=== PATIENT | male | born 1955 | race Caucasian/White ===

== ENCOUNTER → 2020-05-04 08:59 | Outpatient (BNVA) | payer OTHER, SELFPAY | PROVIDERS: Visit Provider Internal Medicine | DX: Z11.59 Encounter for screening for other viral diseases (principal) | CPT/HCPCS: 87635 ==

== ENCOUNTER 2020-05-09 07:02 | Day surgery (SDC) | payer OTHER, SELFPAY ==
[2020-05-04 10:00] VITALS: BMI 24.9
--- NOTE | 2020-05-04 10:18 | ANES.PREANE2 ---
Pre-Anesthetic Assessment Pre-Anesthetic Assessment: Height/Weight: Height 1.89 m Weight 89.358 kg Preop Diagnosis: Bleeding Proposed Procedure: Operation Date: 05/09/20 11:30 Proposed Procedures p Colonoscopy(Not Applicable) - Erik Landrum MD Familial anesthetic complications: None Was Beta Tony taken within 24 hours: N/A Social: Social History: Tobacco and No alcohol Comment: former smoker Exam: Pre-Anes Outpt Exam: alert, oriented x 3, clear to auscultation bilaterally and regular rate & rhythm Airway: Cervical ROM: WNL MP: 1 Dentition: Other (edentulous) Pulmonary: Pulmonary: COPD Anesthetic Plan: ASA status: 2 Anesthesia: MAC Risk of > 500 ml blood loss (7ml/kg in children): No PFSH Anesthesia PFSH: Family History Other CAD (coronary artery disease) Diabetes Stroke Denies family history of Anesthesia complication Bleeding disorder Cancer Social History Smoking and tobacco status: current every day smoker Alcohol intake: current Alcohol intake frequency: holidays/special occasions only Lives independently: Yes Marital status: Single Current occupational status: retired History of recent travel: No Data Anesthesia Cardiac Studies: No Data to Display
[2020-05-09 07:17] VITALS: BP 133/79; PULSE 57; RESP 18; TEMP 36.6; O2SAT 99
--- NOTE | 2020-05-09 07:33 | P.ANESUD_ITS ---
Pre-Anesthetic Update Pre-Anesthetic Assessment: Date of Surgery/Procedure: 05/09/20 Preop Dionne gnosis: Bleeding per rectum Proposed Procedure: Operation Date: 05/09/20 08:45 Proposed Procedures p Colonoscopy(Not Applicable) - Erik Landrum MD Any changes to Pre-Anesthetic Assessment?: No Last Intake: Intake Last Liquid Date 05/08/20 Last Liquid Time 21:00 Last Solid Date 05/07/20 Vitals: Temperature 97.8 F 05/09/20 07:17 Temperature Source Tympanic 05/09/20 07:17 Pulse Rate 57 L 05/09/20 07:17 Respiratory Rate 18 05/09/20 07:17 Blood Pressure 133/79 05/09/20 07:17 Blood Pressure Zuri n 97 05/09/20 07:17 Pulse Oximetry 99 05/09/20 07:17 Oxygen Delivery Me thod 05/09/20 07:17 Exam: Pre-Anes Outpt Exam: alert, oriented x 3, clear to auscultation bilaterally and regular rate & rhythm Cardiac Studies: No Data to Display
[2020-05-09] MEDS: sodium chloride 0.9% 1,000 ML 30 ML IV (07:36)
--- NOTE | 2020-05-09 08:36 | W.PM.OPSUD ---
Surgery/Procedure H&P Update DATE OF PROCEDURE: May 09, 2020 DATE H&P PERFORMED: 04/25/20 H&P UPDATE INFORMATION: I have reviewed H&P completed within last 30 days, I have examined patient prior to procedure and No changes to prior documentation PREOP DIAGNOSIS: Bleeding per rectum PRIMARY INDICATION FOR PROCEDURE: The same PLANNED PROCEDURE: Operation Date: 05/09/20 08:45 Proposed Procedures p Colonoscopy(Not Applicable) - Erik Landrum MD
[2020-05-09 09:25] VITALS: BP 121/78; PULSE 53; RESP 16; TEMP 36.1; O2SAT 100
--- NOTE | 2020-05-09 09:31 | ANE.PACU2 ---
Inpatient post-anesthesia follow up: Airway intact: Yes Vital signs: Temperature 97.0 F Pulse Rate 53 Respiratory Rate 16 Blood Pressure 121/78 Pulse Oximetry 100 Oxygen Delivery Me thod Nasal Cannula Oxygen Flow Rate 3.0 Fraction of Inspir ed Oxygen Hydration adequate: Yes Nausea and vomiting: Yes Mental status: Baseline
[2020-05-09 09:38] VITALS: BP 143/79; PULSE 57; RESP 18; O2SAT 100
== END 2020-05-09 09:50 | disposition home or self-care (01) ==
PROVIDERS: Visit Provider Surgery
PROC: 0DJD8ZZ Inspection of Lower Intestinal Tract, Via Natural or Artificial Opening Endoscopic (ICD-10-PCS; CPT 45378; principal; 2020-05-09 08:45)
DX: D12.5 Benign neoplasm of sigmoid colon (principal); D12.2 Benign neoplasm of ascending colon; K62.0 Anal polyp; D12.4 Benign neoplasm of descending colon; J44.9 Chronic obstructive pulmonary disease, unspecified; F17.210 Nicotine dependence, cigarettes, uncomplicated
CPT/HCPCS: 12345; 45385; 88305; J2704; J3490; J7030

== ENCOUNTER → 2020-05-17 10:05 | Outpatient (BNVA) | payer OTHER, SELFPAY | PROVIDERS: Visit Provider Surgery | DX: Z11.59 Encounter for screening for other viral diseases (principal) | CPT/HCPCS: 87635 ==

== ENCOUNTER 2020-05-21 08:45 | Day surgery (SDC) | payer OTHER, SELFPAY ==
[2020-05-18 09:43] VITALS: BMI 24.9
[2020-05-21] VITALS (7 sets, daily range): BP systolic 122–177; BP diastolic 77–99; PULSE 50–69; RESP 14–18; TEMP 36.1–36.7; O2SAT 90–100
--- NOTE | 2020-05-21 08:54 | ANES.PREANE2 ---
Pre-Anesthetic Assessment Pre-Anesthetic Assessment: Height/Weight: Height 1.89 m Weight 89.358 kg Temp Pulse Resp BP Pulse Ox 98.0 F 61 18 143/77 98 05/21/20 08:52 05/21/20 08:52 05/21/20 08:52 05/21/20 08:52 05/21/20 08:52 Preop Diagnosis: Right inguinal hernia Proposed Procedure: Operation Date: 05/21/20 10:20 Proposed Procedures p Laparoscopic Inguinal Hernia Repair w/Mesh 45809 K40.90(Right) - Erik Landrum MD Familial anesthetic complications: None Was Beta Tony taken within 24 hours: N/A Last intake: Intake Last Liquid Date 05/20/20 Last Liquid Time 20:00 Last Solid Date 05/20/20 Last Solid Time 20:00 Social: Social History: Tobacco and No alcohol Exam: Pre-Anes Outpt Exam: alert, oriented x 3, clear to auscultation bilaterally and regular rate & rhythm Airway: Cervical ROM: WNL MP: 1 Dentition: Other (no teeth) Pulmonary: Pulmonary: COPD Anesthetic Plan: ASA status: 2 Risk of > 500 ml blood loss (7ml/kg in children): No PFSH Anesthesia PFSH: Family History Other CAD (coronary artery disease) Diabetes Stroke Denies family history of Anesthesia complication Bleeding disorder Cancer Social History Smoking and tobacco status: current every day smoker Alcohol intake: current Alcohol intake frequency: holidays/special occasions only Lives independently: Yes Marital status: Single Current occupational status: retired History of recent travel: No Data Anesthesia Cardiac Studies: No Data to Display
[2020-05-21] MEDS: sodium chloride 0.9% 1,000 ML 30 ML IV (09:01)
[2020-05-21 09:11] LABS: Basophils % 0.5 %; Eosinophils # 0.2 10^3/uL (0.0-0.8); Eosinophils % 2.3 %; Hematocrit 44.1 % (42.0-52.0); Lymphocytes # 2.9 10^3/uL (0.8-4.8); Lymphocytes % 33.6 %; Mean Corpuscular HGB Conc 31.7 g/dL (30.0-36.0); Mean Corpuscular Hemoglobin 28.9 pg (28.0-34.0); Mean Corpuscular Volume 91.1 fL (80-94); Mean Platelet Volume 11.7 fL (7.4-10.4); Monocytes # 0.6 10^3/uL (0.2-0.9); Monocytes % 6.5 %; Neutrophils % 56.9 %; Nucleated Red Blood Cells % 0 %; Platelet Count 171 10^3/cmm (130-400); Red Blood Count 4.84 10^6/uL (4.1-5.3); Red Cell Distribution Width 12.8 % (12.1-15.1); White Blood Count 8.6 10^3/uL (4.0-10.0)
[2020-05-21 09:36] LABS: Anion Gap 13.3 (5-19); Blood Urea Nitrogen 17 mg/dL (8-23); Calcium 9.2 mg/dL (8.5-10.5); Carbon Dioxide 25 mmol/L (22-29); Chloride 105 mmol/L (98-107); Glomerular Filtration Rate 97.3 mL/min (90-130); Glucose 97 mg/dL (65-115); Osmolality Calculated 289 mOsm/kg (285-295); Potassium 4.3 mmol/L (3.5-5.1); Sodium 139 mmol/L (136-145)
--- NOTE | 2020-05-21 11:09 | W.PM.OPSUD ---
Surgery/Procedure H&P Update DATE OF PROCEDURE: May 21, 2020 DATE H&P PERFORMED: 05/16/20 H&P UPDATE INFORMATION: I have reviewed H&P completed within last 30 days, I have examined patient prior to procedure and No changes to prior documentation PREOP DIAGNOSIS: Right inguinal hernia PRIMARY INDICATION FOR PROCEDURE: The same PLANNED PROCEDURE: Operation Date: 05/21/20 10:20 Proposed Procedures p Laparoscopic Inguinal Hernia Repair w/Mesh 36398 K40.90(Right) - Erik Landrum MD
--- NOTE | 2020-05-21 13:32 | P.OP_ITS ---
Operative Report Date of procedure: May 21, 2020 Pre-op Diagnosis: Right inguinal hernia Post-op diagnosis: same Post-op Findings: Right indirect inguinal hernia Procedure Done: Laparoscopic right inguinal hernia repair with mesh placement 3D large size Implants: 3D large mesh Specimens removed/disposition: Hernial sac Surgeon: Erik Landrum Powder Guard: Surgical techbatsheva Zamora and Ben Circulating nurses Lenore and Angeline Anesthesia: General (skilled trades teacher Mark) Estimated blood loss (mL): 10 Condition: stable Disposition: same day Brief History: This is a pleasant 64 years old gentleman referred to my practice with symptomatic right inguinal hernia. After thorough history physical examination and reviewing the chart I did prevocational/rehabilitation counselor the patient for laparoscopic right inguinal hernia repair with mesh placement possible open. And agreed to proceed. Informed consent per chart Procedure: Procedure: Transabdominal preperitoneal (DOUGLAS) approach. Patient was identified in the holding area ,patient was transferred to the operating room where he was placed in supine position, with both arms were tucked, antibiotic was given with induction, endotracheal tube was placed per anesthesia, Carmichael catheter was inserted by the circulating nurse and revealed clear urine, prep and drape of the abdomen was done under the usual sterile technique as well as the scrotal area. Time-out was done verifying the patient's name/date of /planned procedure destination after the procedure, all were in agreement. SCDs confirmed to be functioning, preoperative antibiotics administered per protocol, and beta kana protocol was confirmed. A vertical skin incision of 1.2 cm was made with 11 blade knife through the supra umbilicus , incision was carried down to the subcutaneous tissue and deepened to identify the anterior fascia, two stay sutures were applied to the fascia, and safe entrance to the abdominal cavity was achieved, a Campa trocar technique safe entry to the abdominal cavity was achieved verified by using 10 mm zero degree laparoscopy, switched to a 30 degrees scope,low flow followed by a higher flow of CO2 gas up to 15 mmHg. There was no evidence of injury to intra-abdominal structures from the port entry, attention was deviated to both groins, there was a large indirect hernia defect with herniation of peritoneum and preperitoneal fat was noted on the right side, two 5 mm ports were placed on the right and left lateral aspect of the abdomen slightly above the level of the umbilicus, under direct visualization, anesthesia 2% lidocaine local was injected at all trocar sites prior to incisions. The peritoneum above the level of the iliopubic tract was incised to the right of the midline and dissection was performed to create a preperitoneal space medial to lateral aspect up to anterior superior iliac spine on the right side using harmonic scalpel. Dissection was continued onto the medial aspect and the right spermatic was identified, there was evidence of small direct inguinal hernia and a large indirect inguinal hernia.the sac was dissected. As it applied medial to the right inferior epigastric vessels/ dissection was performed to clear the space lateral to the spermatic cord and dorsomedial to it, the hernia sac was reduced and retracted far back, part of the hernial sac was removed and sent for permanent pathology. Suction irrigation was used. Hemostasis was secured as the hernial sac was tethered and developed adhesions that caused some oozing. Then a large right 3-D mesh was rolled and placed into the abdominal cavity through the Campa port, after the mesh was introduced it was positioned to lie in the myopectineal orifice and the mesh was unrolled and this covered the entire my myope pectineal orifice. Intra-abdominal pressure was dropped to 12 mmHg to help placement of the mesh good position. On the lateral aspect of the mesh extended up to the anterior superior iliac spine on the medial aspect the mesh crossed the midline onto the left side, then using absorbable tacks, placed above the iliopubic tract onto the rectus abdominis muscle on the medial aspect and also to the lateral abdominal wall superomedial to the sacroiliac spine, then the mesh was also anchored to the pubis and the Cyrus's ligament inferiorly.The peritoneal leaflets were then brought together to cover the mesh and isolated from the other viscera, extra tacks were used to secure the peritoneum in good position. There was no evidence of inguinal hernia on the left side.Final look demonstrated good hemostasis and the mesh in good position A total of 20 mL Exparel 40 ml Normal saline 20 ml bupivacaine 0.25% were injected at the remaining of the tacks site and trocar sites as well Final look demonstrated good hemostasis there were no injuries,Then the fascia on the supra umbilical fascial defect was closed using #1 PDS under direct visualization using fascial closure device Alfred Najera. then the abdomen was desufflated while holding the peritoneum to make sure there is no herniation blue the mesh. All ports were removed. All skin incisions were closed with 4-0 Monocryl subcuticular suture and surgical glue was applied. The patient tolerated the procedure well, Carmichael catheter was taken out ,got extubated and was transferred to the recovery area in stable condition All counts of instruments, needles and sponges were completed I was present for the whole entire procedure
[2020-05-21] MEDS: HYDROcodone-acetaminophen 5-325 mg Tablet 1 TAB PO (14:15)
--- NOTE | 2020-05-21 15:10 | ANE.PACU2 ---
Inpatient post-anesthesia follow up: Airway intact: Yes Vital signs: Temperature 97.0 F Pulse Rate 50 Respiratory Rate 18 Blood Pressure 122/82 Pulse Oximetry 99 Oxygen Delivery Me thod Room Air Oxygen Flow Rate 10 Fraction of Inspir ed Oxygen Hydration adequate: Yes Nausea and vomiting: No Pain level: 2 Mental status: Baseline
== END 2020-05-21 15:15 | disposition home or self-care (01) ==
LOC: OR 14:57
PROVIDERS: Visit Provider Surgery
PROC: (CPT 49650; principal; 2020-05-21 10:20)
DX: K40.90 Unilateral inguinal hernia, without obstruction or gangrene, not specified as recurrent (principal); J44.9 Chronic obstructive pulmonary disease, unspecified; F17.200 Nicotine dependence, unspecified, uncomplicated
CPT/HCPCS: 49650; 12345; 36415; 51702; 80048; 85025; 88302; 96365; C1781; C9290; J0131; J0690; J1100; J2405; J2710; J3010; J3490; J7030

== ENCOUNTER 2020-07-11 12:52 | Outpatient (CLI) | payer OTHER, SELFPAY ==
--- NOTE | 2020-07-11 13:10 | CT_ITS ---
WS: [id number] CT scan of the chest With IV contrast, CT scan of the abdomen and pelvis with IV contrast and oral contrast. Additional two-dimensional coronal and sagittal reconstruction was performed. 07/11/2020 Clinical Data: RIGHT INGUINAL Hernia, pulmonary NODULES Comparison: None. DLP: 2362.[address] scans at [facility] use at least one of these dose optimization techniques: automat ed exposure control; mA and/or kV adjustment per patient size (includes targeted exams where dose is matched to clinical indication); or iterative reconstruction. Findings: Chest: No nodules, masses or effusions are seen. Bilateral upper lobe emphysema is present. The heart size is normal with no pericardial effusion. There is coronary artery calcification. No pne umonia or pneumothorax is seen. The pulmonary vascularity is normal. The trachea bifurcates normally into the bronchi. The pulmonary arterial system and thoracic aorta demonstrate no abnormalities or di latations. There is no axillary or significant mediastinal adenopathy. There is a small hiatal hernia. The bony thorax shows only minimal osteoarthritis of the thoracic vertebral bodies. Abdomen/pelvis: The liver, gallbladder, spleen, adrenal glands and pancreas are normal. The kidneys show equal bilateral contrast excretion with no cyst or masses. No hydronephrosis or roland l calculi are noted. The abdominal aorta is normal in size with minimal calcification in the wall.. No appendicitis or diverticulitis is seen. Oral contrast is in the stomach and small bowel and there is no bowel dilatation. No abscess, adenopathy, ascites, mass, obstruction or free air is seen. The bladder is unremarkable. The prostate is enlarged with calcification within. There is a right ing uinal hernia.. 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 CT/CT chest abd pel w con* Impression: 1. Negative for acute cardiopulmonary disease. 2. Negative for acute intra-abdominal abnormalities. 3. Small right inguinal hernia.
[2020-07-11] MEDS: iohexol 300 mg/mL 50 mL Btl PO (13:20)
[2020-07-11] MEDS: iohexol 300 mg/mL 100 mL Btl IV (15:08)
[2020-07-11 15:10] LABS: Blood Urea Nitrogen 12 mg/dL (8-23); Glomerular Filtration Rate 113.5 mL/min (90-130)
== END 2020-07-11 12:53 | disposition home or self-care (01) ==
LOC: RADWPI 12:56
PROVIDERS: Visit Provider Emergency Medicine Emergency Medical Services
DX: K40.90 Unilateral inguinal hernia, without obstruction or gangrene, not specified as recurrent (principal)
CPT/HCPCS: 71260; 74177; 82565; 84520; Q9967

== ENCOUNTER 2020-08-03 12:11 | Outpatient (CLI) | payer OTHER, SELFPAY ==
--- NOTE | 2020-08-03 12:17 | USCV_ITS ---
Jayme De Jesus Age: 64 Gender: M : 1955 Exam Date: 08/03/2020 12:23 Ordering Phys: Mikhail Pinto DO Technologist: Jossy Alcocer Exam Location: [facility] – [place] Indication: BRUIT LT SIDE Risk Factors: Unknown Previous Vascular Surgery: None Right Brachial BP: / Left Brachial BP: / Right Left Velocity (cm/s) Spectral Plaque Velocity (cm/s) Spectral Plaque Syst/Diast Broadening Syst/Diast Broadening 89.30/ 25.40 Prox CCA 102.50/ 26.40 79.40/ 25.40 Mid CCA 73.00 / 15.50 75.00/ 25.40 Distal CCA 121.20/ 26.40 56.70/ 22.50 Prox ICA 73.50 / 23.10 59.00/ 25.60 Mid ICA 68.40 / 29.90 62.90/ 28.70 Distal ICA 72.60 / 34.20 66.80 ECA 62.40 0.79 ICA/CCA 1.01 Antegrade Vertebral Antegrade 45.80/ 14.80 cm/s 57.30/ 22.20 cm/s Tri Subclavian Tri 149.1 139.8 0 0 CONCLUSIONS Right ICA stenosis <50%. Mild atheromatous plaque right carotid bulb/ICA. Left ICA stenosis <50%. Mild atheromatous plaque left carotid bulb/ICA. Normal antegrade Doppler flow noted in the right vertebral artery. Normal antegrade Doppler flow noted in the left vertebral artery. Nura Brock MD (Electronically Signed) Final Date: 03 August 2020 17:43 S
== END 2020-08-03 12:12 | disposition home or self-care (01) ==
LOC: US 12:14
PROVIDERS: Visit Provider Emergency Medicine Emergency Medical Services
DX: R09.89 Other specified symptoms and signs involving the circulatory and respiratory systems (principal); I65.23 Occlusion and stenosis of bilateral carotid arteries
CPT/HCPCS: 93880

== ENCOUNTER → 2022-04-23 08:33 | Outpatient (BNVA) | payer OTHER, SELFPAY | PROVIDERS: Visit Provider Surgery | DX: Z86.010 Personal history of colon polyps (principal) | CPT/HCPCS: 99213 ==

== ENCOUNTER 2022-06-13 09:22 | Day surgery (SDC) | payer OTHER, SELFPAY ==
[2022-04-24 14:32] VITALS: BMI 26.6
[2022-06-12 11:53] VITALS: BMI 26.6
--- NOTE | 2022-06-12 15:29 | ANE.PACU2 ---
Inpatient post-anesthesia follow up: Airway intact: Yes Vital signs: Temperature Pulse Rate Respiratory Rate Blood Pressure Pulse Oximetry Oxygen Delivery Me thod Oxygen Flow Rate Fraction of Inspir ed Oxygen Hydration adequate: Yes Nausea and vomiting: No Pain level: 1 Mental status: Baseline
[2022-06-13 09:41] VITALS: BP 157/84; PULSE 57; RESP 18; TEMP 36.4; O2SAT 99
[2022-06-13] MEDS: sodium chloride 0.9% 1,000 ML 30 ML IV ×2 (09:55→12:30)
--- NOTE | 2022-06-13 11:04 | ANES.PREANE2 ---
Pre-Anesthetic Assessment Height/Weight: Height 1.88 m Weight 94.347 kg Temp Pulse Resp BP Pulse Ox O2 Del Method 97.6 F 57 L 18 157/84 99 06/13/22 09:41 06/13/22 09:41 06/13/22 09:41 06/13/22 09:41 06/13/22 09:41 06/13/22 09:41 Preop Diagnosis: History of colon polyps Operation Date: 06/13/22 11:00 Proposed Procedures p Colonoscopy 09175,Z86.010(Not Applicable) - Erik Landrum MD Familial anesthetic complications: None Was Beta Otny taken within 24 hours: N/A Was Clonidine taken within 24 hours: N/A Last intake: Intake Last Liquid Date 06/12/22 Last Liquid Time 20:00 Last Solid Date 06/11/22 Last Solid Time 22:00 Social Tobacco and No alcohol Exam alert, oriented x 3, clear to auscultation bilaterally and regular rate & rhythm Airway Mallampati: Class I Dentition: other (no teeth) Pulmonary Chronic Obstructive Pulmonary Disease Anesthetic Plan ASA status: 2 Anesthesia: MAC Risk of > 500 ml blood loss (7ml/kg in children): No Medications/Allergies Home Medications Medication Instructions Recorded Confirmed Last Taken Type No Known Home Medications 06/12/22 06/12/22 Unknown History Allergies Allergy/AdvReac Type Severity Reaction Status Date / Time bee venom protein (honey bee) Allergy ALGY-Anaphy Verified 04/23/22 09:58 laxis Current Medications Generic Name Dose Route Start Last Admin Trade Name Freq PRN Reason Stop Dose Admin Sodium Chloride 1,000 mls @ 30 mls/hr 06/13/22 09:45 06/13/22 09:55 Sodium Chloride 0.9% IV 06/14/22 09:44 30 mls/hr .Q24H KAROLYN Administration PFSH Anesthesia Medical History Bleeding per rectum Multiple polyps of sigmoid colon Right groin hernia Family History Other CAD (coronary artery disease) Diabetes Stroke Denies family history of Anesthesia complication Bleeding disorder Cancer Social History Smoking and tobacco status: current some day smoker Alcohol intake: current Alcohol intake frequency: holidays/special occasions only Lives independently: Yes Marital status: Single Current occupational status: retired History of recent travel: No Data Anesthesia Cardiac Studies: No Data to Display
--- NOTE | 2022-06-13 11:16 | W.PM.OPSFHP ---
Same Day Surgery H&P Indication for Procedure/HPI DATE OF PROCEDURE: June 13, 2022 CHIEF COMPLAINT/INDICATIONFOR SURGICAL PROCEDURE: History of colon polyps PREOP DIAGNOSIS: History of colon polyps PLANNED PROCEDURE: Operation Date: 06/13/22 11:00 Proposed Procedures p Colonoscopy 26118,Z86.010(Not Applicable) - Erik Landrum MD This is a pleasant 66 years old gentleman comes today for surveillance colonoscopy. ROS All systems have been reviewed negative except as for the above or per problem list. Medications/Allergies* Home Medications Medication Instructions Recorded Confirmed Type No Known Home Medications 06/12/22 06/12/22 History Allergies/Adverse Reactions Allergy/AdvReac Type Severity Reaction Status Date / Time bee venom protein (honey bee) Allergy ALGY-Anaphy Verified 06/13/22 11:16 laxis Current Medications: Generic Name Dose Route Start Last Admin Trade Name Freq PRN Reason Stop Dose Admin Sodium Chloride 1,000 mls @ 30 mls/hr 06/13/22 09:45 06/13/22 09:55 Sodium Chloride 0.9% IV 06/14/22 09:44 30 mls/hr .Q24H KAROLYN Administration Pertinent History/Comorbid Conditions* Medical History (Updated 04/23/22 @ 09:58 by Erik Landrum MD) Bleeding per rectum Multiple polyps of sigmoid colon Right groin hernia Family History (Updated 04/25/20 @ 14:40 by Linda Karimi LPN) Diabetes CAD (coronary artery disease) Stroke Denies family history of Anesthesia complication Bleeding disorder Cancer Social History Smoking and tobacco status: current some day smoker Alcohol intake: current Alcohol intake frequency: holidays/special occasions only Lives independently: Yes Marital status: Single Current occupational status: retired History of recent travel: No Pertinent Exam Findings alert, oriented x 3, regular rate & rhythm and procedure specific exam findings (Abdominal exam nontender nondistended soft) Recommendations Surgery/Procedure today (Colonoscopy with possible Bx) Coding Level of Care Code Acute Orthophoto Tech/Draftsman for Louie Abreu
[2022-06-13 13:22] VITALS: BP 135/75; PULSE 56; RESP 16; TEMP 36.1; O2SAT 100
[2022-06-13 13:27] VITALS: BP 120/81; PULSE 58; RESP 18; O2SAT 100
--- NOTE | 2022-06-13 13:32 | ANE.PACU2 ---
Inpatient post-anesthesia follow up: Airway intact: Yes Vital signs: Temperature 97.0 F Pulse Rate 58 Respiratory Rate 18 Blood Pressure 120/81 Pulse Oximetry 100 Oxygen Delivery Me thod Nasal Cannula Oxygen Flow Rate 4 Fraction of Inspir ed Oxygen Hydration adequate: Yes Nausea and vomiting: No Pain level: 1 Mental status: Baseline
[2022-06-13 13:37] VITALS: BP 121/72; PULSE 45; RESP 18; O2SAT 98
== END 2022-06-13 13:55 | disposition home or self-care (01) ==
PROVIDERS: PCP Emergency Medicine Emergency Medical Services; Visit Provider Surgery
PROC: 0DJD8ZZ Inspection of Lower Intestinal Tract, Via Natural or Artificial Opening Endoscopic (ICD-10-PCS; CPT 45378; principal; 2022-06-13 11:00)
DX: Z12.11 Encounter for screening for malignant neoplasm of colon (principal); Z86.010 Personal history of colon polyps; F17.210 Nicotine dependence, cigarettes, uncomplicated; K57.30 Diverticulosis of large intestine without perforation or abscess without bleeding; D12.2 Benign neoplasm of ascending colon; D12.4 Benign neoplasm of descending colon; J44.9 Chronic obstructive pulmonary disease, unspecified
CPT/HCPCS: 45385; 88305; J2704; J7030

== ENCOUNTER → 2022-07-02 09:19 | Outpatient (BNVA) | payer OTHER, SELFPAY | PROVIDERS: PCP Emergency Medicine Emergency Medical Services; Visit Provider Surgery | DX: Z86.010 Personal history of colon polyps (principal) | CPT/HCPCS: 99213 ==